=== PATIENT | male | born 1975 | race Caucasian/White ===

== ENCOUNTER 2017-03-13 17:17 | Emergency (ER) | payer MEDICAID, OTHER ==
[~2017-03-13] VITALS: Ht 177.8 cm; Wt 99.8 kg
[~2017-03-13 17:17] MED LIST: CEPH500C16 PO; SULF1TAB12 PO
[2017-03-13 17:27] VITALS: BP 121/76
[2017-03-13] MEDS ORDERED: ACETAMINOPHEN EXTRA STRENGTH 500 MG TAB ONE (18:02)
--- NOTE | 2017-03-13 19:16 | NUR ---
BIB WHEELCHAIR TO ER BED 7
--- NOTE | 2017-03-13 19:20 | NUR ---
41 y/o bib family w/c/o l lower leg swelling and redness, and fever of 103 x 3 days. pt appears diaphoretic, vss, denies any sob, tylenol given 45 min d/t fever. ER Made aware.
--- NOTE | 2017-03-13 19:30 | NUR ---
Patient being evaluated by physician at bedside.
[2017-03-13] MEDS ORDERED: CLINDAMYCIN 600 MG/4 ML VIAL IM ONE (19:35)
[2017-03-13] MEDS ORDERED: IBUPROFEN 800 MG TAB PO ONE (19:35)
[2017-03-13 20:18] VITALS: BP 135/54
--- NOTE | 2017-03-13 20:20 | NUR ---
Patient discharged with v/s stable. Written and verbal after care instructions given and explained. Patient alert, oriented and verbalized understanding of instructions. Ambulatory with to home. All questions addressed prior to discharge. ID band removed. Patient advised to follow up with PMD. Rx of MOTRIN, CLINDAMYCIN 300MG given. Patient educated on indication of medication including possible reaction and side effects. Opportunity to ask questions provided and answered.
== END 2017-03-13 20:18 | disposition home or self-care (01) ==
LOC: MED 17:17
DX: L03.116 Cellulitis of left lower limb (principal); F17.210 Nicotine dependence, cigarettes, uncomplicated; Z88.0 Allergy status to penicillin; Z88.2 Allergy status to sulfonamides; Z88.1 Allergy status to other antibiotic agents
CPT/HCPCS: 82948; 96372; 99283; J3490